=== PATIENT | female | born 1955 | race Caucasian/White ===

== ENCOUNTER 2016-10-14 04:58 | Emergency (ER) | payer BC, OTHER ==
[2016-10-14] MEDS ORDERED: MECLIZINE 12.5 MG TAB As Ordered ONE (06:33)
[2016-10-14 07:21] LABS: ANION GAP 5 MEQ/L (8-16); BLOOD UREA NITROGEN 14 MG/DL (7-18); CALCIUM LEVEL 8.7 MG/DL (8.5-10.1); CARBON DIOXIDE LEVEL 31 MEQ/L (21-32); CHLORIDE LEVEL 104 MEQ/L (98-107); CREATININE FOR GFR 0.79 MG/DL (0.55-1.02); GLOMERULAR FILTRATION RATE > 60.0 (>51); GLUCOSE, FASTING 101 MG/DL (70-105); POTASSIUM SERUM 4.7 MEQ/L (3.5-5.1); SODIUM LEVEL 140 MEQ/L (136-145)
[2016-10-14 07:34] LABS: BASO % 1.1 % (0.0-1.0); EOS # 0.1 K/mm3 (0.0-0.50); LARGE UNSTAINED CELL # 0.1 K/mm3 (0.0-0.4); LARGE UNSTAINED CELL % 1.8 % (0.0-4.0); LYMPH # 0.8 K/mm3 (1.5-4.5); LYMPH % 15.1 % (24.0-44.0); MEAN CORPUSCULAR HEMOGLOBIN 27.6 pg (27.0-33.0); MEAN CORPUSCULAR HGB CONC 32.9 g/dl (32.0-36.5); MEAN CORPUSCULAR VOLUME 83.9 fl (80.0-96.0); MONO # 0.4 K/mm3 (0.0-0.8); MONO % 7.9 % (0.0-5.0); NEUTROPHILS # 3.3 K/mm3 (1.8-7.7); NEUTROPHILS % 71.1 % (36.0-66.0); PLATELET COUNT, AUTOMATED 272 k/mm3 (150-450); RED CELL DISTRIBUTION WIDTH 13.6 % (11.5-14.5); WHITE BLOOD COUNT 4.7 K/mm3 (4.0-10.0)
--- NOTE | 2016-10-14 08:25 | EDDOCDS ---
Nurse's Notes [facility] Name: Molly Benedict Age: 60 yrs Sex: Female : 1955 Arrival Date: 10/14/2016 Time: 04:58 Bed 5 Private MD: Diagnosis: Vertiginous syndromes in diseases classified elsewhere, bilateral;Acute upper respiratory infection, unspecified Presentation: 10/14 05:20 Presenting complaint: Patient states: she has upper respiratory infection. Woke up this nn1 AM to go to work and reports dizziness, could not stand. Reports world is spinning. States when she woke up "my vision was a slide show flipping. Now its kindve swirling". Patient reports dry heaves. Adult Sepsis Screening: The patient does not have new or worsening altered mentation. Patient's respiratory rate is less than 22. Systolic blood pressure is greater than 100. Patient has a qSOFA score of 0- Negative Sepsis Screen. Suicide/Homicide risk assessment- the patient denies having any suicidal and/or homicidal ideations and does not present with any other emotional, behavioral or mental health complaints. Status: Patient is not a creative services producer or dependent. Transition of care: patient was not received from another setting of care. 05:20 Acuity: [place] Level 3 nn1 05:20 Method Of Arrival: Walkin/Carried/Asstd nn1 Triage Assessment: 05:27 General: Appears in no apparent distress, comfortable, Behavior is appropriate for age, nn1 cooperative. Pain: Denies pain. Pt Declines HIV testing. The patient is triaged at the bedside. See Assessment in Nurses Notes section of ED record. Neurological: Level of Consciousness is awake, alert, obeys commands, Oriented to person, place, time, Reports blurred vision dizziness, "Room spinning". Respiratory: Airway is patent Respiratory effort is even, unlabored, Respiratory pattern is regular, symmetrical. Respiratory: Breath sounds with wheezes expiratory bilaterally. Reports cough that is non-productive, dry, Congestion. GI: Abdomen is non- distended Reports nausea. Derm: Skin is pink, warm & dry. Historical: - Allergies: No known drug Allergies; - Home Meds: 1. losartan 25 mg oral tab 1 tab once daily 2. Synthroid 50 mcg Oral tab 1 tab once daily 3. pravastatin 40 mg oral tab 1 tab twice a day - PMHx: Hypercholesterolemia; Hypertension; Hypothyroidism; Thyroid problemmass on thyroid; - PSHx: ORIF right shoulder; Disc surgery; Appendectomy; - Social history: Smoking status: Patient states was never smoker of tobacco. No barriers to communication noted, The patient speaks fluent Burmese, Speaks appropriately for age. - Family history: Not pertinent. - : The pt / caregiver states he / she is not on anticoagulants. Home medication list is obtained from the patient. - Exposure Risk Screening:: None identified. Screenin:29 Screening information is obtained from the patient. Fall risk: No risks identified. nn1 Assistance ADL's: requires no assistance with activities of daily living. Abuse/DV Screen: The patient / caregiver reports he/she is: not in a situation that causes fear, pain or injury. Nutritional screening: No deficits noted. Advance Directives: Currently, there is no health care proxy. There is no active DNR order. home support is adequate. Assessment: 05:29 General: See triage assessment . nn1 06:51 General: Appears in no apparent distress, comfortable, Behavior is appropriate for age, nn1 cooperative. Neurological: Reports dizziness. Respiratory: Airway is patent Respiratory effort is even, unlabored, Respiratory pattern is regular. Derm: Skin is pink, warm & dry. 07:24 General: Pt sleeping at this time respirations non labored IV fluids infusing well.. dls Vital Signs: 05:26 BP 139 / 84; Pulse 81; Resp 20; Temp 98(O); Pulse Ox 99% ; Weight 94.35 kg; Height 5 nn1 ft. 7 in. (170.18 cm); Pain 0/10; 06:52 BP 118 / 64 RA Supine (auto/reg); Pulse 67; nn1 06:52 BP 122 / 67 RA Sitting (auto/reg); Pulse 68; nn1 06:52 BP 128 / 74 RA Standing (auto/reg); Pulse 65; Pulse Ox 98% on R/A; nn1 08:12 BP 127 / 77 RA Sitting (auto/lg); Pulse 60; Resp 18; Temp 97.9(O); Pulse Ox 98% on R/A; jrd Pain 0/10; 05:26 Body Mass Index 32.58 (94.35 kg, 170.18 cm) nn1 ED Course: 05:00 Patient visited by Zoe Lara, Reg. hs2 05:00 Patient moved to Waiting hs2 05:17 Patient moved to 5 sls1 05:23 Triage Initiated nn1 06:18 Virgilio Weiss DO is Attending Physician. mm11 06:18 Patient visited by Virgilio Weiss DO. mm11 06:30 Patient visited by Virgilio Weiss DO. mm11 06:51 Inserted saline lock: 20 gauge in left antecubital area and blood collected. The nn1 patient tolerated the procedure well. 06:52 CBC with Diff Sent. nn1 06:52 BMP Sent. nn1 07:15 The patient / caregiver is instructed regarding the plan of care and ED course. Report dls received from Domi HAN. 07:19 Amisha Hooper RN is Primary Nurse. dls 07:39 Patient visited by Amisha Hooper RN. dls 08:22 Discontinued IV lock intact, bleeding controlled, pressure dressing applied, No dls redness/swelling at site. No procedures done that require assistance. Administered Medications: 06:51 Drug: NS 0.9% 1000 ml [sodium chloride 0.9 % intravenous solution] Route: IV; Rate: nn1 bolus; Site: left antecubital; 06:51 Drug: Meclizine 25 mg [meclizine 12.5 mg tablet (2 tabs)] Route: PO; nn1 Order Results: Lab Order: ROBERT; SPEC'M 10/14/16 06:36 Test: GLUCOSE, FASTING; Value: 101; Range: 70-105; Units: MG/DL; Status: F Test: BLOOD UREA NITROGEN; Value: 14; Range: 7-18; Units: MG/DL; Status: F Test: CREATININE FOR GFR; Value: 0.79; Range: 0.55-1.02; Units: MG/DL; Status: F Test: GLOMERULAR FILTRATION RATE; Value: > 60.0; Range: >51; Status: F Test: SODIUM LEVEL; Value: 140; Range: 136-145; Units: MEQ/L; Status: F Test: POTASSIUM SERUM; Value: 4.7; Range: 3.5-5.1; Units: MEQ/L; Status: F Test: CHLORIDE LEVEL; Value: 104; Range: 98-107; Units: MEQ/L; Status: F Test: CARBON DIOXIDE LEVEL; Value: 31; Range: 21-32; Units: MEQ/L; Status: F Test: ANION GAP; Value: 5; Range: 8-16; Abnormal: Below low normal; Units: MEQ/L; Status: F Test: CALCIUM LEVEL; Value: 8.7; Range: 8.5-10.1; Units: MG/DL; Status: F Test Note: ; Units are mL/min/1.73 m2 Chronic Kidney Disease Staging per NKF: Stage I & II GFR >=60 Normal to Mildly Decreased Stage III GFR 30-59 Moderately Decreased Stage IV GFR 15-29 Severely Decreased Stage V GFR <15 Very Little GFR Left ESRD GFR <15 on TRANSPORTATION ASSISTANT Lab Order: CBC with Diff; SPEC'M 10/14/16 06:36 Test: WHITE BLOOD COUNT; Value: 4.7; Range: 4.0-10.0; Units: K/mm3; Status: F Test: RED BLOOD COUNT; Value: 4.70; Range: 4.00-5.40; Units: M/mm3; Status: F Test: HEMOGLOBIN; Value: 13.0; Range: 12.0-16.0; Units: g/dl; Status: F Test: HEMATOCRIT; Value: 39.4; Range: 36.0-47.0; Units: %; Status: F Test: MEAN CORPUSCULAR VOLUME; Value: 83.9; Range: 80.0-96.0; Units: fl; Status: F Test: MEAN CORPUSCULAR HEMOGLOBIN; Value: 27.6; Range: 27.0-33.0; Units: pg; Status: F Test: MEAN CORPUSCULAR HGB CONC; Value: 32.9; Range: 32.0-36.5; Units: g/dl; Status: F Test: RED CELL DISTRIBUTION WIDTH; Value: 13.6; Range: 11.5-14.5; Units: %; Status: F Test: PLATELET COUNT, AUTOMATED; Value: 272; Range: 150-450; Units: k/mm3; Status: F Test: NEUTROPHILS %; Value: 71.1; Range: 36.0-66.0; Abnormal: Above high normal; Units: %; Status: F Test: LYMPH %; Value: 15.1; Range: 24.0-44.0; Abnormal: Below low normal; Units: %; Status: F Test: MONO %; Value: 7.9; Range: 0.0-5.0; Abnormal: Above high normal; Units: %; Status: F Test: EOS %; Value: 3.0; Range: 0.0-3.0; Units: %; Status: F Test: BASO %; Value: 1.1; Range: 0.0-1.0; Abnormal: Above high normal; Units: %; Status: F Test: LARGE UNSTAINED CELL %; Value: 1.8; Range: 0.0-4.0; Units: %; Status: F Test: NEUTROPHILS #; Value: 3.3; Range: 1.8-7.7; Units: K/mm3; Status: F Test: LYMPH #; Value: 0.8; Range: 1.5-4.5; Abnormal: Below low normal; Units: K/mm3; Status: F Test: MONO #; Value: 0.4; Range: 0.0-0.8; Units: K/mm3; Status: F Test: EOS #; Value: 0.1; Range: 0.0-0.50; Units: K/mm3; Status: F Test: BASO #; Value: 0.0; Range: 0.0-0.2; Units: K/mm3; Status: F Test: LARGE UNSTAINED CELL #; Value: 0.1; Range: 0.0-0.4; Units: K/mm3; Status: F Outcome: 07:57 Discharge ordered by Provider. mm11 08:22 Discharge Assessment: Patient awake, alert and oriented x 3. No cognitive and/or dls functional deficits noted. Patient verbalized understanding of disposition instructions. patient administered narcotics - no. The following High Risk Discharge criteria are identified: None. Discharged to home ambulatory. Condition: stable Condition: improved. Discharge instructions given to patient, Instructed on discharge instructions, follow up and referral plans. medication usage, Demonstrated understanding of instructions, medications, Pt was receptive of discharge instructions/ teaching. Prescriptions given X 2, Work note provided to patient. No special radiology studies were completed. Property sent home with patient. 08:24 Patient left the ED. dls Signatures: Amisha Hooper RN RN dls Virgilio Weiss DO DO mm11 Samaria Vargas RN RN sls1 Devonte Avilez, [employer] jrd Asuncion Vidal,RN RN nn1 Zoe Lara, Reg Reg hs2 MTDD
--- NOTE | 2016-10-14 08:26 | EDDOCDS ---
Physician Documentation [facility] Name: Molly Benedict Age: 60 yrs Sex: Female : 1955 Arrival Date: 10/14/2016 Time: 04:58 Bed 5 Private MD: Disposition: 10/14/16 07:57 Discharged to Home/Self Care. Impression: Vertiginous syndromes in diseases classified elsewhere, bilateral, Acute upper respiratory infection, unspecified. - Condition is Stable. - Discharge Instructions: Upper Respiratory Infection, Adult, Vertigo, Viral Infections, Vertigo, [id number]. - Prescriptions for Meclizine 25 mg Oral Tablet - take 1 tablet by ORAL route every 8 hours As needed; 30 tablet. Fluticasone 50 mcg/actuation Nasal [place], Suspension - inhale 1 spray by INTRANASAL route 2 times per day; 1 bottle. - Medication Reconciliation, Local Pharmacy Hours, Work Release Form - 1 day form. - Follow up: Private Physician; When: 2 - 3 days; Reason: Continuance of care. - Problem is an acute exacerbation. - Symptoms have improved. Historical: - Allergies: No known drug Allergies; - Home Meds: 1. losartan 25 mg oral tab 1 tab once daily 2. Synthroid 50 mcg Oral tab 1 tab once daily 3. pravastatin 40 mg oral tab 1 tab twice a day - PMHx: Hypercholesterolemia; Hypertension; Hypothyroidism; Thyroid problemmass on thyroid; - PSHx: ORIF right shoulder; Disc surgery; Appendectomy; - Social history: Smoking status: Patient states was never smoker of tobacco. No barriers to communication noted, The patient speaks fluent Korean, Speaks appropriately for age. - Family history: Not pertinent. - : The pt / caregiver states he / she is not on anticoagulants. Home medication list is obtained from the patient. - Exposure Risk Screening:: None identified. Vital Signs: 10/14 05:26 BP 139 / 84; Pulse 81; Resp 20; Temp 98(O); Pulse Ox 99% ; Weight 94.35 kg / 208.01 nn1 lbs; Height 5 ft. 7 in. (170.18 cm); Pain 0/10; 06:52 BP 118 / 64 RA Supine (auto/reg); Pulse 67; nn1 06:52 BP 122 / 67 RA Sitting (auto/reg); Pulse 68; nn1 06:52 BP 128 / 74 RA Standing (auto/reg); Pulse 65; Pulse Ox 98% on R/A; nn1 08:12 BP 127 / 77 RA Sitting (auto/lg); Pulse 60; Resp 18; Temp 97.9(O); Pulse Ox 98% on R/A; jrd Pain 0/10; 05:26 Body Mass Index 32.58 (94.35 kg, 170.18 cm) nn1 MDM: 06:31 IV Saline Lock ordered. mm11 06:31 NS 0.9% 1000 ml IV at bolus once ordered. mm11 06:32 Meclizine 25 mg PO once ordered. mm11 06:32 Orthostatic VS ordered. mm11 06:32 BMP Ordered. EDMS 06:32 CBC with Diff Ordered. EDMS 07:41 BMP Reviewed. mm11 07:41 CBC with Diff Reviewed. mm11 Administered Medications: 06:51 Drug: NS 0.9% 1000 ml [sodium chloride 0.9 % intravenous solution] Route: IV; Rate: nn1 bolus; Site: left antecubital; 06:51 Drug: Meclizine 25 mg [meclizine 12.5 mg tablet (2 tabs)] Route: PO; nn1 Signatures: Dispatcher [employer] Amisha Muñoz RN RN dls Maynard, Matthew, DO DO mm11 Asuncion Vidal RN RN nn1 TITA
--- NOTE | 2016-10-16 09:25 | EDDOCDS ---
Physician Documentation [facility] Name: Molly Benedict Age: 60 yrs Sex: Female : 1955 Arrival Date: 10/14/2016 Time: 04:58 Bed 5 Private MD: Disposition: 10/14/16 07:57 Discharged to Home/Self Care. Impression: Vertiginous syndromes in diseases classified elsewhere, bilateral, Acute upper respiratory infection, unspecified. - Condition is Stable. - Discharge Instructions: Upper Respiratory Infection, Adult, Vertigo, Viral Infections, Vertigo, [id number]. - Prescriptions for Meclizine 25 mg Oral Tablet - take 1 tablet by ORAL route every 8 hours As needed; 30 tablet. Fluticasone 50 mcg/actuation Nasal [place], Suspension - inhale 1 spray by INTRANASAL route 2 times per day; 1 bottle. - Medication Reconciliation, Local Pharmacy Hours, Work Release Form - 1 day form. - Follow up: Private Physician; When: 2 - 3 days; Reason: Continuance of care. - Problem is an acute exacerbation. - Symptoms have improved. Historical: - Allergies: No known drug Allergies; - Home Meds: 1. losartan 25 mg oral tab 1 tab once daily 2. Synthroid 50 mcg Oral tab 1 tab once daily 3. pravastatin 40 mg oral tab 1 tab twice a day - PMHx: Hypercholesterolemia; Hypertension; Hypothyroidism; Thyroid problemmass on thyroid; - PSHx: ORIF right shoulder; Disc surgery; Appendectomy; - Social history: Smoking status: Patient states was never smoker of tobacco. No barriers to communication noted, The patient speaks fluent Persian, Speaks appropriately for age. - Family history: Not pertinent. - : The pt / caregiver states he / she is not on anticoagulants. Home medication list is obtained from the patient. - Exposure Risk Screening:: None identified. Vital Signs: 10/14 05:26 BP 139 / 84; Pulse 81; Resp 20; Temp 98(O); Pulse Ox 99% ; Weight 94.35 kg / 208.01 nn1 lbs; Height 5 ft. 7 in. (170.18 cm); Pain 0/10; 06:52 BP 118 / 64 RA Supine (auto/reg); Pulse 67; nn1 06:52 BP 122 / 67 RA Sitting (auto/reg); Pulse 68; nn1 06:52 BP 128 / 74 RA Standing (auto/reg); Pulse 65; Pulse Ox 98% on R/A; nn1 08:12 BP 127 / 77 RA Sitting (auto/lg); Pulse 60; Resp 18; Temp 97.9(O); Pulse Ox 98% on R/A; jrd Pain 0/10; 05:26 Body Mass Index 32.58 (94.35 kg, 170.18 cm) nn1 MDM: 06:31 IV Saline Lock ordered. mm11 06:31 NS 0.9% 1000 ml IV at bolus once ordered. mm11 06:32 Meclizine 25 mg PO once ordered. mm11 06:32 Orthostatic VS ordered. mm11 06:32 BMP Ordered. EDMS 06:32 CBC with Diff Ordered. EDMS 07:41 BMP Reviewed. mm11 07:41 CBC with Diff Reviewed. mm11 09:58 Financial registration complete. b 09:59 [facility] Payment Agreement was scanned into [employer] and attached to record. mpb 18:16 T-Sheet-- Draft Copy was scanned into [employer] and attached to record. klr Administered Medications: 06:51 Drug: NS 0.9% 1000 ml [sodium chloride 0.9 % intravenous solution] Route: IV; Rate: nn1 bolus; Site: left antecubital; 06:51 Drug: Meclizine 25 mg [meclizine 12.5 mg tablet (2 tabs)] Route: PO; nn1 Signatures: Dispatcher [employer] Amisha Muñoz RN RN dls Virgilio Weiss DO DO mm11 Asuncion Vidal RN RN nn1 Erwin Rolle, Jeffrey Reg mpVeronica Perla klr The chart was reviewed and I authenticate all verbal orders and agree with the evaluation and treatment provided.Attachments: :59 [facility] Payment Agreement mpb 18:16 T-Sheet-- Draft Copy klr Chart Complete MTDD
--- NOTE | 2016-10-16 09:25 | EDDOCDS ---
Nurse's Notes [facility] Name: Molly Benedict Age: 60 yrs Sex: Female : 1955 Arrival Date: 10/14/2016 Time: 04:58 Bed 5 Private MD: Diagnosis: Vertiginous syndromes in diseases classified elsewhere, bilateral;Acute upper respiratory infection, unspecified Presentation: 10/14 05:20 Presenting complaint: Patient states: she has upper respiratory infection. Woke up this nn1 AM to go to work and reports dizziness, could not stand. Reports world is spinning. States when she woke up "my vision was a slide show flipping. Now its kindve swirling". Patient reports dry heaves. Adult Sepsis Screening: The patient does not have new or worsening altered mentation. Patient's respiratory rate is less than 22. Systolic blood pressure is greater than 100. Patient has a qSOFA score of 0- Negative Sepsis Screen. Suicide/Homicide risk assessment- the patient denies having any suicidal and/or homicidal ideations and does not present with any other emotional, behavioral or mental health complaints. 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 Transition of care: patient was not received from another setting of care. 05:20 Acuity: [place] Level 3 nn1 05:20 Method Of Arrival: Walkin/Carried/Asstd nn1 Triage Assessment: 05:27 General: Appears in no apparent distress, comfortable, Behavior is appropriate for age, nn1 cooperative. Pain: Denies pain. Pt Declines HIV testing. The patient is triaged at the bedside. See Assessment in Nurses Notes section of ED record. Neurological: Level of Consciousness is awake, alert, obeys commands, Oriented to person, place, time, Reports blurred vision dizziness, "Room spinning". Respiratory: Airway is patent Respiratory effort is even, unlabored, Respiratory pattern is regular, symmetrical. Respiratory: Breath sounds with wheezes expiratory bilaterally. Reports cough that is non-productive, dry, Congestion. GI: Abdomen is non- distended Reports nausea. Derm: Skin is pink, warm & dry. Historical: - Allergies: No known drug Allergies; - Home Meds: 1. losartan 25 mg oral tab 1 tab once daily 2. Synthroid 50 mcg Oral tab 1 tab once daily 3. pravastatin 40 mg oral tab 1 tab twice a day - PMHx: Hypercholesterolemia; Hypertension; Hypothyroidism; Thyroid problemmass on thyroid; - PSHx: ORIF right shoulder; Disc surgery; Appendectomy; - Social history: Smoking status: Patient states was never smoker of tobacco. No barriers to communication noted, The patient speaks fluent [place], Speaks appropriately for age. - Family history: Not pertinent. - : The pt / caregiver states he / she is not on anticoagulants. Home medication list is obtained from the patient. - Exposure Risk Screening:: None identified. Screenin:29 Screening information is obtained from the patient. Fall risk: No risks identified. nn1 Assistance ADL's: requires no assistance with activities of daily living. Abuse/DV Screen: The patient / caregiver reports he/she is: not in a situation that causes fear, pain or injury. Nutritional screening: No deficits noted. Advance Directives: Currently, there is no health care proxy. There is no active DNR order. home support is adequate. Assessment: 05:29 General: See triage assessment . nn1 06:51 General: Appears in no apparent distress, comfortable, Behavior is appropriate for age, nn1 cooperative. Neurological: Reports dizziness. Respiratory: Airway is patent Respiratory effort is even, unlabored, Respiratory pattern is regular. Derm: Skin is pink, warm & dry. 07:24 General: Pt sleeping at this time respirations non labored IV fluids infusing well.. dls Vital Signs: 05:26 BP 139 / 84; Pulse 81; Resp 20; Temp 98(O); Pulse Ox 99% ; Weight 94.35 kg; Height 5 nn1 ft. 7 in. (170.18 cm); Pain 0/10; 06:52 BP 118 / 64 RA Supine (auto/reg); Pulse 67; nn1 06:52 BP 122 / 67 RA Sitting (auto/reg); Pulse 68; nn1 06:52 BP 128 / 74 RA Standing (auto/reg); Pulse 65; Pulse Ox 98% on R/A; nn1 08:12 BP 127 / 77 RA Sitting (auto/lg); Pulse 60; Resp 18; Temp 97.9(O); Pulse Ox 98% on R/A; jrd Pain 0/10; 05:26 Body Mass Index 32.58 (94.35 kg, 170.18 cm) nn1 ED Course: 05:00 Patient visited by Zoe Lara, Reg. hs2 05:00 Patient moved to Waiting hs2 05:17 Patient moved to 5 sls1 05:23 Triage Initiated nn1 06:18 Virgilio Weiss DO is Attending Physician. mm11 06:18 Patient visited by Virgilio Weiss DO. mm11 06:30 Patient visited by Virgilio Weiss DO. mm11 06:51 Inserted saline lock: 20 gauge in left antecubital area and blood collected. The nn1 patient tolerated the procedure well. 06:52 CBC with Diff Sent. nn1 06:52 BMP Sent. nn1 07:15 The patient / caregiver is instructed regarding the plan of care and ED course. Report dls received from Domi HAN. 07:19 Amisha Hooper RN is Primary Nurse. dls 07:39 Patient visited by Amisha Hooper RN. dls 08:22 Discontinued IV lock intact, bleeding controlled, pressure dressing applied, No dls redness/swelling at site. No procedures done that require assistance. 09:57 Patient name changed from Molly\\S\\\\S\\Benedict\\S\\ to Molly\\S\\ \\S\\Benedict. EDMS 09:59 [facility] was scanned into [employer] and attached to record. mp 18:16 T-Sheet-- Draft Copy was scanned into [employer] and attached to record. klr Administered Medications: 06:51 Drug: NS 0.9% 1000 ml [sodium chloride 0.9 % intravenous solution] Route: IV; Rate: nn1 bolus; Site: left antecubital; 06:51 Drug: Meclizine 25 mg [meclizine 12.5 mg tablet (2 tabs)] Route: PO; nn1 Order Results: Lab Order: BMP; SPEC'M 10/14/16 06:36 Test: GLUCOSE, FASTING; Value: 101; Range: 70-105; Units: MG/DL; Status: F Test: BLOOD UREA NITROGEN; Value: 14; Range: 7-18; Units: MG/DL; Status: F Test: CREATININE FOR GFR; Value: 0.79; Range: 0.55-1.02; Units: MG/DL; Status: F Test: GLOMERULAR FILTRATION RATE; Value: > 60.0; Range: >51; Status: F Test: SODIUM LEVEL; Value: 140; Range: 136-145; Units: MEQ/L; Status: F Test: POTASSIUM SERUM; Value: 4.7; Range: 3.5-5.1; Units: MEQ/L; Status: F Test: CHLORIDE LEVEL; Value: 104; Range: 98-107; Units: MEQ/L; Status: F Test: CARBON DIOXIDE LEVEL; Value: 31; Range: 21-32; Units: MEQ/L; Status: F Test: ANION GAP; Value: 5; Range: 8-16; Abnormal: Below low normal; Units: MEQ/L; Status: F Test: CALCIUM LEVEL; Value: 8.7; Range: 8.5-10.1; Units: MG/DL; Status: F Test Note: ; Units are mL/min/1.73 m2 Chronic Kidney Disease Staging per NKF: Stage I & II GFR >=60 Normal to Mildly Decreased Stage III GFR 30-59 Moderately Decreased Stage IV GFR 15-29 Severely Decreased Stage V GFR <15 Very Little GFR Left ESRD GFR <15 on [employer]BURET[employer] Lab Order: CBC with Diff; SPEC'M 10/14/16 06:36 Test: WHITE BLOOD COUNT; Value: 4.7; Range: 4.0-10.0; Units: K/mm3; Status: F Test: RED BLOOD COUNT; Value: 4.70; Range: 4.00-5.40; Units: M/mm3; Status: F Test: HEMOGLOBIN; Value: 13.0; Range: 12.0-16.0; Units: g/dl; Status: F Test: HEMATOCRIT; Value: 39.4; Range: 36.0-47.0; Units: %; Status: F Test: MEAN CORPUSCULAR VOLUME; Value: 83.9; Range: 80.0-96.0; Units: fl; Status: F Test: MEAN CORPUSCULAR HEMOGLOBIN; Value: 27.6; Range: 27.0-33.0; Units: pg; Status: F Test: MEAN CORPUSCULAR HGB CONC; Value: 32.9; Range: 32.0-36.5; Units: g/dl; Status: F Test: RED CELL DISTRIBUTION WIDTH; Value: 13.6; Range: 11.5-14.5; Units: %; Status: F Test: PLATELET COUNT, AUTOMATED; Value: 272; Range: 150-450; Units: k/mm3; Status: F Test: NEUTROPHILS %; Value: 71.1; Range: 36.0-66.0; Abnormal: Above high normal; Units: %; Status: F Test: LYMPH %; Value: 15.1; Range: 24.0-44.0; Abnormal: Below low normal; Units: %; Status: F Test: MONO %; Value: 7.9; Range: 0.0-5.0; Abnormal: Above high normal; Units: %; Status: F Test: EOS %; Value: 3.0; Range: 0.0-3.0; Units: %; Status: F Test: BASO %; Value: 1.1; Range: 0.0-1.0; Abnormal: Above high normal; Units: %; Status: F Test: LARGE UNSTAINED CELL %; Value: 1.8; Range: 0.0-4.0; Units: %; Status: F Test: NEUTROPHILS #; Value: 3.3; Range: 1.8-7.7; Units: K/mm3; Status: F Test: LYMPH #; Value: 0.8; Range: 1.5-4.5; Abnormal: Below low normal; Units: K/mm3; Status: F Test: MONO #; Value: 0.4; Range: 0.0-0.8; Units: K/mm3; Status: F Test: EOS #; Value: 0.1; Range: 0.0-0.50; Units: K/mm3; Status: F Test: BASO #; Value: 0.0; Range: 0.0-0.2; Units: K/mm3; Status: F Test: LARGE UNSTAINED CELL #; Value: 0.1; Range: 0.0-0.4; Units: K/mm3; Status: F Outcome: 07:57 Discharge ordered by Provider. mm11 08:22 Discharge Assessment: Patient awake, alert and oriented x 3. No cognitive and/or dls functional deficits noted. Patient verbalized understanding of disposition instructions. patient administered narcotics - no. The following High Risk Discharge criteria are identified: None. Discharged to home ambulatory. Condition: stable Condition: improved. Discharge instructions given to patient, Instructed on discharge instructions, follow up and referral plans. medication usage, Demonstrated understanding of instructions, medications, Pt was receptive of discharge instructions/ teaching. Prescriptions given X 2, Work note provided to patient. No special radiology studies were completed. Property sent home with patient. 08:24 Patient left the ED. dls Signatures: Dispatcher [employer] EDMS Amisha Hooper, RN RN dls Virgilio Weiss, DO DO mm11 Samaria Vargas RN RN sls1 Devonte Avilez, ADULT CARE PROVIDER ADULT CARE PROVIDER d Asuncion VidalRN RN nn1 Erwin Rolle, Reg Reg mpb Zoe Lara, Reg Reg hs2 Veronica Caballero Chart Complete MTDD
--- NOTE | 2016-10-16 09:25 | EDDOCDS ---
Physician Documentation [facility] Name: Molly Benedict Age: 60 yrs Sex: Female : 1955 Arrival Date: 10/14/2016 Time: 04:58 Bed 5 Private MD: Disposition: 10/14/16 07:57 Discharged to Home/Self Care. Impression: Vertiginous syndromes in diseases classified elsewhere, bilateral, Acute upper respiratory infection, unspecified. - Condition is Stable. - Discharge Instructions: Upper Respiratory Infection, Adult, Vertigo, Viral Infections, Vertigo, [id number]. - Prescriptions for Meclizine 25 mg Oral Tablet - take 1 tablet by ORAL route every 8 hours As needed; 30 tablet. Fluticasone 50 mcg/actuation Nasal [place], Suspension - inhale 1 spray by INTRANASAL route 2 times per day; 1 bottle. - Medication Reconciliation, Local Pharmacy Hours, Work Release Form - 1 day form. - Follow up: Private Physician; When: 2 - 3 days; Reason: Continuance of care. - Problem is an acute exacerbation. - Symptoms have improved. Historical: - Allergies: No known drug Allergies; - Home Meds: 1. losartan 25 mg oral tab 1 tab once daily 2. Synthroid 50 mcg Oral tab 1 tab once daily 3. pravastatin 40 mg oral tab 1 tab twice a day - PMHx: Hypercholesterolemia; Hypertension; Hypothyroidism; Thyroid problemmass on thyroid; - PSHx: ORIF right shoulder; Disc surgery; Appendectomy; - Social history: Smoking status: Patient states was never smoker of tobacco. No barriers to communication noted, The patient speaks fluent Fris[place], Speaks appropriately for age. - Family history: Not pertinent. - : The pt / caregiver states he / she is not on anticoagulants. Home medication list is obtained from the patient. - Exposure Risk Screening:: None identified. Vital Signs: 10/14 05:26 BP 139 / 84; Pulse 81; Resp 20; Temp 98(O); Pulse Ox 99% ; Weight 94.35 kg / 208.01 nn1 lbs; Height 5 ft. 7 in. (170.18 cm); Pain 0/10; 06:52 BP 118 / 64 RA Supine (auto/reg); Pulse 67; nn1 06:52 BP 122 / 67 RA Sitting (auto/reg); Pulse 68; nn1 06:52 BP 128 / 74 RA Standing (auto/reg); Pulse 65; Pulse Ox 98% on R/A; nn1 08:12 BP 127 / 77 RA Sitting (auto/lg); Pulse 60; Resp 18; Temp 97.9(O); Pulse Ox 98% on R/A; jrd Pain 0/10; 05:26 Body Mass Index 32.58 (94.35 kg, 170.18 cm) nn1 MDM: 06:31 IV Saline Lock ordered. mm11 06:31 NS 0.9% 1000 ml IV at bolus once ordered. mm11 06:32 Meclizine 25 mg PO once ordered. mm11 06:32 Orthostatic VS ordered. mm11 06:32 BMP Ordered. EDMS 06:32 CBC with Diff Ordered. EDMS 07:41 BMP Reviewed. mm11 07:41 CBC with Diff Reviewed. mm11 09:58 Financial registration complete. b 09:59 [facility] Payment Agreement was scanned into [employer] and attached to record. mpb 18:16 T-Sheet-- Draft Copy was scanned into [employer] and attached to record. klr Administered Medications: 06:51 Drug: NS 0.9% 1000 ml [sodium chloride 0.9 % intravenous solution] Route: IV; Rate: nn1 bolus; Site: left antecubital; 06:51 Drug: Meclizine 25 mg [meclizine 12.5 mg tablet (2 tabs)] Route: PO; nn1 Signatures: Dispatcher [employer] Amisha Muñoz RN RN dls Virgilio Weiss DO DO mm11 Asuncion Vidal RN RN nn1 Erwin Rolle, Jeffrey Reg mpVeronica Perla klr The chart was reviewed and I authenticate all verbal orders and agree with the evaluation and treatment provided.Attachments: :59 [facility] Payment Agreement mpb 18:16 T-Sheet-- Draft Copy klr Chart Complete MTDD
== END 2016-10-14 08:24 | disposition home or self-care (01) ==
LOC: M ED 04:58
DX: H81.399 Other peripheral vertigo, unspecified ear (principal); J06.9 Acute upper respiratory infection, unspecified; I10 Essential (primary) hypertension; E03.9 Hypothyroidism, unspecified; E04.1 Nontoxic single thyroid nodule; E78.00 Pure hypercholesterolemia, unspecified; Z87.39 Personal history of other diseases of the musculoskeletal system and connective tissue; Z90.89 Acquired absence of other organs; Z79.899 Other long term (current) drug therapy

== ENCOUNTER → 2019-01-28 | Outpatient (REF) | payer BC, OTHER | LOC: M LAB REF 17:03 | PROVIDERS: ATTEND Internal Medicine | DX: R10.9 Unspecified abdominal pain (principal) ==

== ENCOUNTER → 2023-01-07 | Outpatient (REF) | payer OTHER, BC, MEDICARE ==
[2023-01-07 15:38] LABS: APPEARANCE, URINE CLEAR (CLEAR); BACTERIA, URINE AUTO NEGATIVE (NEGATIVE); BILIRUBIN, URINE AUTO NEGATIVE (NEGATIVE); BLOOD, URINE BLOOD NEGATIVE (NEGATIVE); COLOR, URINE STRAW (YELLOW); GLUCOSE, URINE (UA) AUTO NEGATIVE (NEGATIVE); KETONE, URINE AUTO NEGATIVE (NEGATIVE); LEUKOCYTE ESTERASE, URINE AUTO NEGATIVE (NEGATIVE); NITRITE, URINE AUTO NEGATIVE (NEGATIVE); PROTEIN, URINE AUTO NEGATIVE (NEGATIVE); RBC, URINE AUTO 1 /HPF (0-3); SPECIFIC GRAVITY URINE AUTO 1.008 (1.002-1.035); SQUAMOUS EPITHELIAL CELL UR AU 0 /HPF (0-6); UROBILINOGEN, URINE AUTO 0.2 mg/dL (0.0-2.0); WBC, URINE AUTO 0 /HPF (0-3)
== END ==
LOC: M LAB REF 14:32
PROVIDERS: ATTEND Internal Medicine
DX: R06.00 Dyspnea, unspecified (principal)

== ENCOUNTER → 2023-01-15 | Outpatient (REF) | payer MEDICARE, BC, OTHER ==
[2023-01-15 14:55] LABS: APPEARANCE, URINE CLEAR (CLEAR); BACTERIA, URINE AUTO NEGATIVE (NEGATIVE); BILIRUBIN, URINE AUTO NEGATIVE (NEGATIVE); BLOOD, URINE BLOOD NEGATIVE (NEGATIVE); COLOR, URINE STRAW (YELLOW); GLUCOSE, URINE (UA) AUTO NEGATIVE (NEGATIVE); KETONE, URINE AUTO NEGATIVE (NEGATIVE); LEUKOCYTE ESTERASE, URINE AUTO NEGATIVE (NEGATIVE); NITRITE, URINE AUTO NEGATIVE (NEGATIVE); PROTEIN, URINE AUTO NEGATIVE (NEGATIVE); RBC, URINE AUTO 0 /HPF (0-3); SPECIFIC GRAVITY URINE AUTO 1.006 (1.002-1.035); SQUAMOUS EPITHELIAL CELL UR AU 0 /HPF (0-6); UROBILINOGEN, URINE AUTO 0.2 mg/dL (0.0-2.0); WBC, URINE AUTO 0 /HPF (0-3)
== END ==
LOC: M LAB REF 12:53
PROVIDERS: ATTEND Internal Medicine
DX: R31.9 Hematuria, unspecified (principal)

== ENCOUNTER → 2023-01-21 | Outpatient (REF) | payer MEDICARE, BC, OTHER ==
[2023-01-21 17:56] LABS: APPEARANCE, URINE HAZY (CLEAR); BACTERIA, URINE AUTO NEGATIVE (NEGATIVE); BILIRUBIN, URINE AUTO NEGATIVE (NEGATIVE); BLOOD, URINE BLOOD NEGATIVE (NEGATIVE); COLOR, URINE YELLOW (YELLOW); GLUCOSE, URINE (UA) AUTO NEGATIVE (NEGATIVE); KETONE, URINE AUTO NEGATIVE (NEGATIVE); LEUKOCYTE ESTERASE, URINE AUTO NEGATIVE (NEGATIVE); NITRITE, URINE AUTO NEGATIVE (NEGATIVE); PROTEIN, URINE AUTO NEGATIVE (NEGATIVE); RBC, URINE AUTO 1 /HPF (0-3); SPECIFIC GRAVITY URINE AUTO 1.019 (1.002-1.035); SQUAMOUS EPITHELIAL CELL UR AU 2 /HPF (0-6); UROBILINOGEN, URINE AUTO 0.2 mg/dL (0.0-2.0); WBC, URINE AUTO 0 /HPF (0-3)
== END ==
LOC: M LAB REF 16:11
PROVIDERS: ATTEND Internal Medicine
DX: R31.9 Hematuria, unspecified (principal)

== ENCOUNTER 2024-12-08 22:47 | Emergency (ER) | payer MEDICARE, OTHER ==
[2024-12-08 23:22] VITALS: TEMP 96.9
[2024-12-08 23:24] LABS: BASO # 0.1 10^3/uL (0.0-0.2); BASO % 0.8 % (0.0-1.0); EOS # 0.2 10^3/uL (0.0-0.5); EOS % 3.7 % (0.0-3.0); HEMATOCRIT 42.9 % (36.0-47.0); HEMOGLOBIN 13.7 g/dl (12.0-15.5); LYMPH % 33.1 % (24.0-44.0); MEAN CORPUSCULAR HEMOGLOBIN 27.8 pg (27.0-33.0); MEAN CORPUSCULAR HGB CONC 31.9 g/dl (32.0-36.5); MONO # 0.6 10^3/uL (0.0-0.8); MONO % 9.9 % (2.0-8.0); NEUTROPHILS # 3.1 10^3/uL (1.5-8.5); PLATELET COUNT, AUTOMATED 289 10^3/uL (150-450); RED BLOOD COUNT 4.93 10^6/uL (4.00-5.40)
[2024-12-08 23:46] LABS: CK-MB VALUE MASS 3.3 NG/ML (<3.6)
[2024-12-08 23:48] LABS: BLOOD UREA NITROGEN 14 MG/DL (9-23); CALCIUM LEVEL 9.8 MG/DL (8.3-10.6); CARBON DIOXIDE LEVEL 28 MMOL/L (20-31); CHLORIDE LEVEL 107 MMOL/L (98-107); CREATININE FOR GFR 0.73 MG/DL (0.55-1.30); GLOMERULAR FILTRATION RATE > 60.0 (>45); GLUCOSE, FASTING 110 MG/DL (74-106); MAGNESIUM LEVEL 2.2 MG/DL (1.8-2.4); POTASSIUM SERUM 3.9 MMOL/L (3.5-5.1); SODIUM LEVEL 141 MMOL/L (136-145)
[2024-12-08 23:50] LABS: THYROID STIMULATING HORMONE 4.362 uIU/ML (0.55-4.78)
[2024-12-08 23:52] LABS: CPK CREATINE PHOSPHOKINASE 409 U/L (34-145)
[2024-12-09] MEDS: METOPROLOL 5 MG/5 ML VIAL IV PRN
[2024-12-09 00:15] VITALS: BP 117/65
[2024-12-09 01:04] LABS: CK-MB VALUE MASS 3.1 NG/ML (<3.6)
[2024-12-09 01:08] LABS: MB/CK RELATIVE INDEX 0.85 (< OR =4)
[2024-12-09] MEDS ORDERED: ELIQ5TAB PO (01:28)
[2024-12-09 01:30] VITALS: BP 131/74; O2SAT 96
== END 2024-12-09 01:46 | disposition home or self-care (01) ==
LOC: M ED 22:47
DX: I48.91 Unspecified atrial fibrillation (principal); I10 Essential (primary) hypertension; E78.5 Hyperlipidemia, unspecified; Z88.8 Allergy status to other drugs, medicaments and biological substances; Z79.01 Long term (current) use of anticoagulants